=== PATIENT | male | born 1990 | race Caucasian/White ===

== ENCOUNTER 2020-06-06 17:46 | Emergency (ER) | payer OTHER, SELFPAY ==
--- NOTE | 2020-06-06 17:57 | ECG_ITS ---
[facility] Test Date: 2020-06-06 Pat Name: Kevin Ta Department: Room: Gender: Male [employer]: : 1990 Requested By: Igor Malloy Order Number: [id number] Eve MD: Beba Salomon M.D. Measurements Intervals [place] Rate: 59 P: 122 MA: 136 QRS: 150 QRSD: 90 T: 128 QT: 379 QTc: 376 Interpretive Statements SINUS BRADYCARDIA WITH OCCASIONAL VENTRICULAR PREMATURE COMPLEXES ARM LEADS REVERSED [INVERTED P AND QRS IN I] No previous ECG available for comparison Electronically Signed On 06-06-2020 20:26:01 CDT by Beba Salomon M.D. [email or web address] [email or web address] sunflower medical centerRoomActuallycleveland clinic mentor [id number]
--- NOTE | 2020-06-06 17:57 | XR_ITS ---
WS: [id number] EXAM: Chest: PA and lateral DATE OF EXAMINATION: 06/06/2020, 1822 hours COMPARISON: None. HISTORY: Patient is 30 years old with atraumatic chest pain. FINDINGS: The heart size is normal. The mediastinal contours are normal. Pulmonary vascularity is within norm al limits. The lungs are clear. No effusion, or pneumothorax. Bone is normal in appearance. There ap pears to be a slight pectus deformity on the lateral image. XR/XR chest 2V* [id number] IMPRESSION: SLIGHT PECTUS DEFORMITY. NO ACUTE PULMONARY DISEASE.
[2020-06-06 18:05] VITALS: BMI 23.5
[2020-06-06 18:07] VITALS: BP 128/77; PULSE 67; RESP 16; TEMP 37; O2SAT 99
--- NOTE | 2020-06-06 20:07 | ECG_ITS ---
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 Measurements Intervals [place] Rate: 46 P: -1 WI: 138 QRS: 28 QRSD: 89 T: 50 QT: 413 QTc: 362 Interpretive Statements SINUS BRADYCARDIA Compared to ECG 06/06/2020 18:13:43 Ventricular premature complex(es) no longer present Electronically Signed On 06-07-2020 22:39:43 CDT by Alexander Garrett M.D. [id number]
--- NOTE | 2020-06-06 20:08 | W.ED.CHESTPA ---
HPI - Chest Pain General: Chief Complaint: Chest Pain Stated Complaint: cp Time Seen by Provider: 06/06/20 20:02 Source: patient Mode of arrival: ambulatory Limitations: no limitations History of Present Illness: HPI narrative: Manjit is a nice 30-year-old male comes in complaining of palpitations for the past week. Today he had a pain in his chest lasting just brief minute or so and then it resolved. Patient eyes any shortness of breath, diaphoresis, nausea vomiting, syncope or near syncope. Patient states that he was concerned that he has the pain tonight. When he describes palpitations he describes symptoms of pounding hard in his chest but denies any heart racing. Patient denies any leg pain or swelling, history of DVT or PE or any cardiac problems. Associated symptoms: Reports palpitations; Deny abdominal pain, diaphoresis, dyspnea, fever(s), nausea, syncope or vomiting Review of Systems Const: Denies: fever(s), chills, body aches, fatigue, malaise or diaphoresis Eyes: Denies: change in vision, blurry vision, photophobia, eye discomfort, eye discharge or eye redness ENMT: Denies: throat pain, odynophagia, hoarseness, swelling of lips/tongue, ear or mastoid pain, ear discharge, change in hearing or nasal discharge Card: Reports: palpitations; Denies: chest pain, irregular heart rhythm, edema, lightheadedness, syncope, pre-syncope, dyspnea on exertion or orthopnea Resp: Denies: dyspnea, productive cough, non-productive cough, wheezing, hemoptysis or chest congestion GI: Denies: abdominal pain, nausea, vomiting, hematemesis, coffee ground emesis, heartburn, diarrhea, constipation, GI cramping, hematochezia or melena : Denies: flank pain, dysuria, urinary frequency, urinary urgency or hematuria Musc: Denies: neck pain, back pain, extremity pain, extremity swelling, joint pain, joint swelling, joint redness, joint warmth or joint stiffness Skin/Breast: Denies: rash, pruritus, erythema or skin tenderness Neuro: Denies: headache(s), numbness in extremities, weakness in extremities, sensory changes, lack of coordination, difficulty walking, dizziness, vertigo, confusion, Slurred speech present or seizure-like activity Manny/Lymph: Denies: easy bruising, easy bleeding, petechiae, purpura or enlarged lymph nodes All/Imm: Denies: urticaria, throat swelling, tongue swelling, facial swelling or acute wheezing PFSH ED PFSH: Medical History (Updated 06/06/20 @ 21:11 by Eula Tellez) No pertinent past medical history Surgical History (Updated 06/06/20 @ 20:11 by Eula Tellez) No pertinent past surgical history Physical Exam Const: COMMON NORMALS: no acute distress, patient oriented x3, no limitations, healthy appearing and well nourished GENERAL APPEARANCE: cooperative, well kempt and well developed HENMT: COMMON NORMALS: normocephalic, atraumatic, external ears normal, EAC's normal and Normal external nose present HEAD & SCALP: normal to inspection, normocephalic and atraumatic FACE & SINUS: normal facial exam and face symmetric NOSE: Normal external nose present and Normal nares present EXTERNAL EAR: Yes external ears normal EXTERNAL AUDITORY CANAL: EAC's normal MOUTH: Normal oral and palatal mucosa present, lip normal and tongue normal Eye: COMMON NORMALS: Equal, round and reactive pupils present and conjunctivae normal GENERAL EYE: appearance normal, both eyes and all related structures ALIGNMENT: Yes alignment normal PERIORBITAL: periorbital findings normal EYELID: eyelids normal CONJUNCTIVA: Yes conjunctivae normal SCLERA: sclerae normal PUPIL: Yes Equal, round and reactive pupils present Neck/C-Spine: COMMON NORMALS: full ROM, no lymphadenopathy, supple, no meningeal signs and no JVD GENERAL: Yes normal visual inspection and Yes trachea midline Chest: COMMONS NORMALS: normal inspection of the chest and normal palpation of entire chest wall Resp: COMMON NORMALS: normal respiratory effort, No retractions, No use of accessory muscles and clear to auscultation bilaterally EFFORT & INSPECTION: Yes able to speak in complete sentences and Yes symmetric chest movement AUSCULTATION: clear to auscultation bilaterally, no crackles, no rales, no rhonchi and no wheezes Cardio: COMMON NORMALS: no JVD, regular rate, regular rhythm, S1 normal heart sound present and S2 normal heart sound present RATE: regular rate RHYTHM: regular rhythm HEART SOUNDS: S1 normal heart sound present, S2 normal heart sound present, no click, no gallops, no murmurs, no rubs and abnormal split S2 GI: COMMON NORMALS: Soft to palpation and No hepatosplenomegaly present PALPATION: Yes Soft to palpation, No Tenderness to palpation present (GI), No Guarding due to palpation present (GI), No Rigid due to palpation, Yes No hepatosplenomegaly present, No Hernia present, No Palpable mass present and No Pulsatile mass present : COMMON NORMALS: Yes no CVA tenderness BLADDER/KIDNEY EXAM: Yes no CVA tenderness Back/Pelvis: COMMON NORMALS: no CVA tenderness, thoracic and lumbar spine normal to inspection, no thoracic nor lumbar tenderness and thoraco-lumbar ROM normal Extremity: COMMON NORMALS: normal to inspection, full ROM, capillary refill normal, no joint enlargement, no clubbing, cyanosis or edema and no calf tenderness Neuro: COMMON NORMALS: patient oriented x3, CN's II-XII intact bilaterally, moves all extremities, no focal motor deficits and no sensory deficits noted MENINGEAL SIGNS: Yes no meningeal signs SPEECH: speech normal Psych: COMMON NORMALS: mental status grossly normal, Normal thought process present, cooperative, normal affect, speech normal and activity/motor behavior normal APPEARANCE: Yes well kempt SPEECH: Yes normal speech THOUGHT PROCESS: Normal thought process present Skin: COMMON NORMALS: no rashes or lesions noted, turgor normal, no jaundice, no petechiae and no mottling GENERAL SKIN EXAM: no rashes or lesions noted and turgor normal Course Vital Signs: Vital signs: Vital Signs Temperature 98.6 F 06/06/20 18:07 Pulse Rate 67 06/06/20 18:07 Respiratory Rate 16 06/06/20 18:07 Blood Pressure 128/77 06/06/20 18:07 Pulse Oximetry 99 06/06/20 18:07 MDM - Chest Pain MDM Narrative: Medical decision making narrative: Patient is reassured that his chest x-ray and labs are unremarkable. He is PERC rule negative. I see no sign of acute life-threatening arrhythmia on his EKGs. There is no sign of Vsiuy-Xemxsfxvt-Vrozg syndrome or other serious arrhythmia. He never described a rapid heartbeat only strong pounding in his chest. Patient's lab work and x-rays are unremarkable. He agrees to follow-up with his regular doctor but at this time he denies other complaints or concerns. He does not describe anything that sounds like pulmonary embolism, aortic dissection or acute coronary syndrome. Lab Data: Attestation: I reviewed the patient's lab results. Labs: Lab Results 06/06/20 06/06/20 06/06/20 Range/Units 20:30 20:30 20:30 WBC 7.9 (4.0-10.0) 10^3/ uL RBC 4.99 (4.1-5.3) 10^6/u L Hgb 15.1 (11.7-16.6) g/dL Hct 45.6 (42.0-52.0) % MCV 91.4 (80-94) fL MCH 30.3 (28.0-34.0) pg MCHC 33.1 (30.0-36.0) g/dL RDW 11.5 L (12.1-15.1) % Plt Count 364 (130-400) 10^3/c mm MPV 10.4 (7.4-10.4) fL Neut % (Auto) 55.2 % Lymph % (Auto) 31.4 % [place] % (Auto) 8.5 % Eos % (Auto) 3.7 % Baso % (Auto) 0.9 % Neut # (Auto) 4.34 (1.8-7.7) 10^3/u L Lymph # (Auto) 2.5 (0.8-4.8) 10^3/u L [place] # (Auto) 0.7 (0.2-0.9) 10^3/u L Eos # (Auto) 0.3 (0.0-0.8) 10^3/u L Baso # (Auto) 0.1 (0.0-0.1) 10^3/u L Nucleated RBC % (a uto) 0 % Nucleated RBCs # 0.0 /100WBC Sodium 139 (136-145) mmol/L Potassium 3.9 (3.5-5.1) mmol/L Chloride 105 (98-107) mmol/L Carbon Dioxide 23 (22-29) mmol/L Anion Gap 14.9 (5-19) BUN 12 (6-20) mg/dL Creatinine 0.8 (0.7-1.2) mg/dL GFR Calculation 115.1 (90-130) mL/min Glucose 85 (65-115) mg/dL Calculated Osmolal ity 283 L (285-295) mOsm/k g Calcium 9.4 (8.5-10.5) mg/dL Total Bilirubin 0.8 (0.15-1.2) mg/dL AST 22 (0-40) U/L ALT 19 (0-41) U/L Alkaline Phosphata se 60 (40-130) IU/L Troponin T Gen 5 n g/L 6 (0-15) ng/L Total Protein 7.5 (6.6-8.7) g/dL Albumin 4.8 (3.5-5.2) g/dL Globulin 2.7 (1.3-4.6) g/dL Imaging Data^: CXR: My impression: No acute cardiopulmonary findings EKG Data^: EKG 1: Attestation: I personally reviewed and interpreted this EKG as follows: EKG interpretation date: 06/06/20 EKG interpretation time: 18:13 Interpretation: Sinus bradycardia 59 beats a minute, suspect arm lead reversal. Nonspecific changes secondary to arm lead reversal. EKG 2: Attestation: I personally reviewed and interpreted this EKG as follows: EKG interpretation date: 06/06/20 EKG interpretation time: 20:20 Interpretation: Sinus bradycardia 46 beats a minute, no blocks, normal intervals, no acute ST-T wave changes. Discharge Plan Discharge Patient Disposition: Home Clinical Impression: Heart palpitations Condition: Stable Discharge Orders: Discharge Order (Routine); Ordered 06/06/20 Ordered By: Eula Tellez Referrals: Alexander Garrett MD [Physician] - 1-3 days Discharge Diet: Advance as tolerated Discharge Activity: Increase activity as tolerated Patient Instructions: Palpitations (ED) Activity Restrictions/Additional Instructions: Please return to the ER immediately for any of the signs or symptoms listed on your discharge instruction sheets, worsening/changing of your symptoms, you are not getting better as quickly as expected, or for ANY other cause or concerns. Coding Level of Care Code ED White [employer] Corrosion Proofer for Chg Fwd Exam Comprehensive
[2020-06-06 20:47] LABS: Basophils # 0.1 10^3/uL (0.0-0.1); Basophils % 0.9 %; Eosinophils # 0.3 10^3/uL (0.0-0.8); Eosinophils % 3.7 %; Hematocrit 45.6 % (42.0-52.0); Hemoglobin 15.1 g/dL (11.7-16.6); Lymphocytes # 2.5 10^3/uL (0.8-4.8); Lymphocytes % 31.4 %; Mean Corpuscular HGB Conc 33.1 g/dL (30.0-36.0); Mean Corpuscular Hemoglobin 30.3 pg (28.0-34.0); Mean Corpuscular Volume 91.4 fL (80-94); Mean Platelet Volume 10.4 fL (7.4-10.4); Monocytes # 0.7 10^3/uL (0.2-0.9); Monocytes % 8.5 %; Neutrophils # 4.34 10^3/uL (1.8-7.7); Neutrophils % 55.2 %; Nucleated Red Blood Cells % 0 %; Platelet Count 364 10^3/cmm (130-400); Red Blood Count 4.99 10^6/uL (4.1-5.3); Red Cell Distribution Width 11.5 % (12.1-15.1); White Blood Count 7.9 10^3/uL (4.0-10.0)
[2020-06-06 21:04] LABS: Troponin T (5th) Once 6 ng/L (0-15)
[2020-06-06 21:05] LABS: Alanine Aminotransferase 19 U/L (0-41); Albumin Level 4.8 g/dL (3.5-5.2); Alkaline Phosphatase 60 IU/L (40-130); Aspartate Amino Transferase 22 U/L (0-40); Blood Urea Nitrogen 12 mg/dL (6-20); Calcium 9.4 mg/dL (8.5-10.5); Globulin 2.7 g/dL (1.3-4.6); Glomerular Filtration Rate 115.1 mL/min (90-130); Glucose 85 mg/dL (65-115); Total Bilirubin 0.8 mg/dL (0.15-1.2); Total Protein 7.5 g/dL (6.6-8.7)
[2020-06-06 21:06] LABS: Anion Gap 14.9 (5-19); Carbon Dioxide 23 mmol/L (22-29); Chloride 105 mmol/L (98-107); Osmolality Calculated 283 mOsm/kg (285-295); Potassium 3.9 mmol/L (3.5-5.1); Sodium 139 mmol/L (136-145)
[2020-06-06 21:27] VITALS: BP 128/84; PULSE 48; RESP 14; O2SAT 98
== END 2020-06-06 21:42 | disposition home or self-care (01) ==
PROVIDERS: Emergency Provider Emergency Medicine
DX: R00.2 Palpitations (principal)
CPT/HCPCS: 12345; 36415; 71046; 80053; 84484; 85025; 93005; 99282; 99283